=== PATIENT | male | born 1965 | race Caucasian/White ===

== ENCOUNTER → 2016-12-25 | Outpatient (CLI) | payer OTHER ==
--- NOTE | ~2016-12-25 | SLE ---
[facility] [address] [place] [address] POLYSOMNOGRAPHY STUDY Name: MAGGY PAEZ [id number] Admission: 12/25/16 Attend Phys: Joseph Handy MD Discharge: Date of : 63 Report #: [id number] THIS REPORT FOR: //name// CC: Felipe Handy HISTORY: Prior sleep study in 2009 showed an apnea-hypopnea index of 24 events per sleep hour with positional component. A CPAP titration night in 2010 showed initially an AHI of 83, low sat 79%. CPAP improved, however, did not correct and a trial of auto titrating was suggested. This is a BiPAP titration night as the patient did not tolerate CPAP. Titrated IPAP of 10, EPAP of 6; IPAP of 12, EPAP of 6; IPAP of 13, EPAP of 6; 15/6, /. At IPAP of 13, EPAP of 6. With large ResMed Quattro Air full facemask, had an IPAP of 13, EPAP of 6: The patient was seen for 134 minutes of which ____ minutes was in REM sleep. By: 22 10 Sulema Tyler MD /nt
== END ==
LOC: SLEEPLAB 12-23 16:21
DX: G47.33 Obstructive sleep apnea (adult) (pediatric) (principal)